=== PATIENT | male | born 1980 | race American Indian/Alaskan Native ===

== ENCOUNTER 2019-07-14 09:22 | Emergency (ER) | payer SELFPAY ==
[2019-07-14 09:27] VITALS: BP 120/77
[2019-07-14] MEDS ORDERED: LIDOCAINE-MPF (1%) 10 MG/1 ML VIAL 5 ML INFILTRATI ONE (10:00)
--- NOTE | 2019-07-14 10:36 | Emergency Department Report ---
- General Chief complaint: Skin/Abscess/Foreign Body Stated complaint: CYST ON FOREHEAD Time Seen by Provider: 07/14/19 10:00 Source: patient Mode of arrival: Ambulatory Limitations: No Limitations - History of Present Illness Initial comments: Patient is a 39-year-old male presents emergency room with complaints of a cyst to his right eyebrow that began a week ago. He states that a week ago he was cooking on the grill and accidentally singed part of his eyebrows. He states that the eyebrows were growing back and he noticed a very small lump. He states that it has been increasing in size over the last week. He denies any fever, drainage, nausea, vomiting, chills, any other symptoms. He denies any past medical history. He has an allergy to penicillin. He states his last tetanus immunization was 3 years ago. - Related Data Allergies Allergy/AdvReac Type Severity Reaction Status Date / Time Penicillins Allergy Anaphylaxis Verified 07/14/19 09:26 Abscess Boil HPI - HPI Chief Complaint: Skin/Abscess/Foreign Body Stated Complaint: CYST ON FOREHEAD Time Seen by Provider: 07/14/19 10:00 Allergies/Adverse Reactions: Allergies Allergy/AdvReac Type Severity Reaction Status Date / Time Penicillins Allergy Anaphylaxis Verified 07/14/19 09:26 ED Review of Systems ROS: Stated complaint: CYST ON FOREHEAD Other details as noted in HPI Comment: All other systems reviewed and negative ED Past Medical Hx - Past Medical History Previous Medical History?: No - Surgical History Past Surgical History?: No - Social History Smoking Status: Current Every Day Smoker Substance Use Type: None ED Physical Exam - General Limitations: No Limitations General appearance: alert, in no apparent distress - Head Head exam: Present: other (2 cm area of induration and small amount of fluctuance present just below the right eyebrow) - Eye Eye exam: Present: PERRL, EOMI. Absent: conjunctival injection Pupils: Present: normal accommodation - ENT ENT exam: Present: mucous membranes moist - Neurological Exam Neurological exam: Present: alert, oriented X3 - Psychiatric Psychiatric exam: Present: normal affect, normal mood - Skin Skin exam: Present: warm, dry ED Course Vital Signs 07/14/19 09:26 Temperature 98.5 F Pulse Rate 74 Respiratory 20 Rate Blood Pressure 120/77 O2 Sat by Pulse 100 Oximetry - I & D Right Face Type of Procedure: Simple Site: just below the right eyebrow Blade Size: 11 I & D Procedure: betadine prep, sterile drapes applied, sterile dressing applied Progress: Clean site with Betadine, 1 cc of 1% lidocaine without epinephrine used as anesthetic, cleaned with iodine sticks, 1 cm incision made with 11 blade, thick tissue like material expressed consistent with sebaceous cyst, probed with blunt forceps, irrigated with saline, iodoform placed, sterile dressing applied, patient tolerated well, no complications, bleeding controlled ED Medical Decision Making - Medical Decision Making Patient is a 39-year-old male presents emergency room with complaints of a cyst to his right eyebrow that began a week ago. He states that a week ago he was cooking on the grill and accidentally singed part of his eyebrows. He states that the eyebrows were growing back and he noticed a very small lump. He states that it has been increasing in size over the last week. He denies any fever, drainage, nausea, vomiting, chills, any other symptoms. He denies any past medical history. He has an allergy to penicillin. He states his last tetanus immunization was 3 years ago. Vitals are normal. On exam:2 cm area of induration and small amount of fluctuance present just below the right eyebrow, no signs of burn. I&D performed per procedure note with sebaceous material expressed and packing placed. The sebaceous material did not appear to be infected, there was no odor. Advised patient that sebaceous cyst may return and that he would need to see a general surgeon or cream dumper. advised pt Please keep area clean, dry, covered. Packing needs to be removed in 2 days, may return to the emergency room or go to a clinic. No hot tub, no pool, no soaking in water. Follow-up with a cream dumper or general surgeon. The sebaceous cyst may return. Return to emergency room for any new or worsening symptoms. - Differential Diagnosis abscess, sebaceous cyst, cellulitis, insect bite Critical care attestation.: If time is entered above; I have spent that time in minutes in the direct care of this critically ill patient, excluding procedure time. ED Disposition Clinical Impression: Sebaceous cyst, Encounter for incision and drainage procedure Disposition: TO HOME OR SELFCARE Is pt being admited?: No Does the pt Need Aspirin: No Condition: Stable Instructions: Incision and Drainage (ED) Additional Instructions: Please keep area clean, dry, covered. Packing needs to be removed in 2 days, may return to the emergency room or go to a clinic. No hot tub, no pool, no soaking in water. Follow-up with a cream dumper or general surgeon. The sebaceous cyst may return. Return to emergency room for any new or worsening symptoms. [facility] in [place], [place] Address: [address] [place] [address] Referrals: RAMA WINKLER MD [Staff Physician] - 3-5 Days Time of Disposition: 10:36 Print Language: [id number]
== END 2019-07-14 11:00 | disposition home or self-care (01) ==
LOC: ED 09:22
DX: H02.826 Cysts of left eye, unspecified eyelid (principal); F17.200 Nicotine dependence, unspecified, uncomplicated
CPT/HCPCS: 99281